=== PATIENT | male | born 1935 | race Caucasian/White ===

== ENCOUNTER 2018-03-24 16:14 | Inpatient (IN) | payer OTHER, BC ==
[~2018-03-24] VITALS: Ht 182.9 cm; Wt 81.4 kg
--- NOTE | ~2018-03-24 | HC ---
[facility] [place] [address] CONSULTATION Name: JOÃO HERNANDEZ Room #: 515-P [facility]..#: [id number] Admission: 03/27/18 Attend Phys: Jayant King MD Discharge: 04/10/18 Date of : 34 Report #: [id number] THIS REPORT FOR: //name// CC: Jayant Hernandez DATE OF SERVICE: 04/01/2018 NEUROBEHAVIORAL STATUS EXAM ATTENDING PHYSICIAN: Jayant King MD GUIDE DOG MOBILITY INSTRUCTOR: Jayant Luna, PhD CLINICAL PRESENTATION: The patient is an 83-year-old male admitted to [facility] for a comprehensive inpatient rehabilitation program to improve functional mobility and activities of daily living and self-care secondary to a fall at his home. The patient is described as having had a syncopal episode. He carries diagnoses of Parkinson's disease, sick sinus syndrome with atrial fibrillation and bradycardia, Gram-negative elisa bacteremia, acute renal insufficiency, mild rhabdomyolysis, chronic atrial fibrillation, chronic back pain, coronary artery disease, status post stents and coronary artery bypass grafting and urinary tract infection with prostatitis. A complete description of his medical condition and history can be found in his medical record. Neuropsychological consultation was requested to provide assistance in the assessment of cognitive and emotional status and to provide recommendations and services. Prior to this most recent admission, he reported to have been living independently in his own home. The patient reports having a supportive family. 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 He reports that he was driving and managing medication, nutrition and finances independently prior to this most recent medical event. His several years ago. TECHNIQUES UTILIZED: Clinical interview, review of medical records, staff consultation and behavioral observation, mini mental status exam 2 standard version, clock drawing. EXAMINATION FINDINGS: The patient was alert and cooperative with the assessment. He accurately described events surrounding his admission. There is no evidence of aphasia. He does not report auditory or visual hallucinations. There is no evidence of thought disorder. The patient reports symptoms to include sleep disturbance, decreased appetite, depression and anxiety. He reports having been on an antidepressant, but does not feel it to be helping. He denies difficulty with memory or word finding. The patient is self-conscious about cognitive deficits as his premorbid level of functioning was quite high. [address] [address] CONSULTATION Name: DAVIDJOÃO Eliana RODRIGUEZ Room #: 515-P [facility]#: [id number] Admission: 03/27/18 Attend Phys: Jayant King MD Discharge: 04/10/18 Date of : 34 Report #: [id number] His performance on the MMSE 2 brief version was extremely low with a raw score of 10/16 and a T score of 12. He was 3/3 for initial registration, 4/5 for orientation to time, 1/[address] and 2/3 for immediate recall of 3 items after a brief time delay and distraction. His performance improved, but still extremely low on the MMSE 2 standard version with a raw score of 22/30, T score of 28 and percentile rank of 1. Moderate deficits are suggested by overall performance on the MMSE 2. He was 4/5 for serial sevens, 2/2 for naming, 1/1 for repetition, 3/3 for comprehension. He could read and follow single command. The patient was able to write a sentence. The patient did have trouble copying a simple geometric design. Clock drawing suggests some subtle deficits in organization. The patient is presenting with impairment in immediate memory and orientation to place. Tiredness and fatigue may be contributing to his overall level of functioning. 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 RECOMMENDATIONS: The patient will likely require increased assistance in the management of instrumental activities of daily living upon his discharge. He reports that he was completely independent with driving and managing all aspects of necessary activity. Continued treatment for depression is recommended. Consider a change in the antidepressants by either increasing dose or switching to a different type. Verbal praise and complements will be helpful during his therapeutic program. The patient will need help in recognizing specific deficits in the way in which therapeutic activity is designed to assist with compensation. Thank you very much for allowing me to provide the consultation on this patient. <ELECTRONICALLY SIGNED> By: Jayant Luna, PhD 04/10/18 [id number] Jayant Luna, PhD /nt
--- NOTE | ~2018-03-24 | PLAN ---
[facility] [place] [address] REHAB UNIT PLAN OF CARE Name: JOÃO SALAS JR Room #: 515-P [facility] M.R.#: [id number] Admission: 03/27/18 Attend Phys: Jayant King MD Discharge: Date of : 34 Report #: [id number] THIS REPORT FOR: //name// CC: Jayant Salas DATE OF SERVICE: 03/29/2018 PROGRESS NOTE AND OVERALL PLAN OF CARE SUBJECTIVE: The patient was seen back in followup. He was in no distress this morning. Temperature is 98.5, pulse is 69, respirations 18, and blood pressure is 160/77. He has been transferring with min assist, gait 75 feet front-wheeled walker. He does have some balance deficits with his Parkinson's. We are monitoring him closely. Lower extremity dressing is moderate assistance. He does have definite dysphagia, on a pureed diet, nectar thickened liquids. Vital stimulation has been added. He is being closely monitored by Infectious Disease as well as Pulmonary Medicine. GI is involved as well as internal medicine. He will need a pacemaker eventually per notes. His ileus has resolved. He does have the history of UTI with prostatitis. ASSESSMENT: 1. Syncopal episode. 2. Parkinson's disease. 3. Sick sinus syndrome with atrial fibrillation with bradycardia. 4. Gram-negative elisa bacteremia with Infectious Disease involved. 5. Acute renal insufficiency. 6. Mild rhabdomyolysis. 7. Chronic atrial fibrillation, on Coumadin. 8. Chronic back pain. 9. Coronary artery disease, status post cardiac stents and coronary artery bypass grafting. 10. History of urinary tract infection with prostatitis. PLAN: The overall plan of care is based on the preadmission screen, post-admission physician evaluation, and information garnered from therapy assessments. 1. Estimated length of stay is probably 10 days to 2 weeks and probably longer with his multiple medical issues and dysphagia. He has the significant functional deficits. 2. Medical prognosis is reasonably good. 3. Anticipated interventions includes the interdisciplinary acute inpatient rehabilitation program with PT, OT, speech rehab nursing assisting regarding medication management, skin care prophylaxis, bowel and bladder issues, and nursing education. Case management is involved as well as the computer consultant physicians. [address] [address] REHAB UNIT PLAN OF CARE Name: JOÃO SALAS Room #: 515-P [facility] IN [facility].#: [id number] Admission: 03/27/18 Attend Phys: Jayant King MD Discharge: Date of : 34 Report #: [id number] 4. Anticipated functional outcomes would be for the patient to become modified independent with transfers, mobility, ADLs, and swallowing issues to try to return back to the home setting. 5. Discharge destination would be back to the home setting where he lives in a house alone. He does have involved family. 6. Expected therapy by discipline includes PT and OT and speech 1 hour per day each five days a week throughout the duration of the acute inpatient rehabilitation stay. <ELECTRONICALLY SIGNED> By: Jayant King MD 04/05/18 [id number] Jayant King MD /[facility]
--- NOTE | ~2018-03-24 | H ---
[facility] [place] [address] HISTORY AND PHYSICAL Name: JOÃO SALAS JR Room #: 515-P [facility] IN M.R.#: [id number] Admission: 03/27/18 Attend Phys: Jayant King MD Discharge: Date of : 34 Report #: [id number] THIS REPORT FOR: //name// CC: Jayant Salas DATE OF SERVICE: 03/27/2018 HISTORY AND PHYSICAL AND POST-ADMISSION PHYSICIAN EVALUATION HISTORY OF PRESENT ILLNESS: The patient is an 83-year-old white male originally transferred to [facility] on 03/20/2018 from [facility] after he passed out in the shower. He has history of Parkinson's disease and has been on Sinemet. He did not utilize gait aids in his home. He used a cane in the community. He was noted by family noted to have passed out in the shower. He was diagnosed with rhabdomyolysis. He also was diagnosed with sick sinus syndrome and noted to have had a syncopal episode. He has acute renal insufficiency. He was diagnosed with bacteremia, gram-negative elisa, question of acute pyelonephritis. Cardiology was closely involved. He had bradycardia in the 40s. The plan at this time is to hold off on pacemaker placement. He was premorbidly on anticoagulation. He has been cleared to resume p.o. Coumadin. He did have some abdominal pain/ileus with Reglan being added. Swallow eval did reveal some dysphagia and he is on pureed with nectar thickened liquid. He was diagnosed with UTI prostatitis, was placed on Levaquin. He had acute renal insufficiency. With his Parkinson's disease, he has problems with decreased coordination, balance and his overall functional condition has worsened. He has now been admitted for acute in-hospital inpatient rehabilitation. PAST MEDICAL HISTORY: Parkinson's disease. He has history of hypertension, anxiety, depression, dyslipidemia, skin cancer, coronary artery disease, chronic back pain. PAST SURGICAL HISTORY: Appendectomy, CABG x 3 in 1999, right hip replacement in 2012, Dupuytren's contractures in 1974 and in 2005. ALLERGIES: EZETIMIBE, SIMVASTATIN, AMANTADINE AND CYCLOBENZAPRINE. MEDICATIONS: Please see the full medication listing. This includes his vitamins, herbals, and supplements. HABITS: Tobacco abuse, quit greater than a year ago. No history of alcohol abuse. SOCIAL HISTORY: Lives in a house alone, two steps in, did not utilize gait aids. Used a cane in the community. There is a son that lives in the area and has been calling daily and will go by and check in on him. [place] [address] HISTORY AND PHYSICAL Name: JOÃO SALAS Room #: 515-P [facility] ..#: [id number] Admission: 03/27/18 Attend Phys: Jayant King MD Discharge: Date of : 34 Report #: [id number] well. REVIEW OF SYSTEMS: No current complaints of chest pain, shortness of breath or abdominal discomfort. No focal extremity pain complaints. PHYSICAL EXAMINATION: GENERAL: An 83-year-old white male in no obvious distress. VITAL SIGNS: Last recorded temperature 98.1, pulse 73, respirations 24, blood pressure 149/67. HEAD, EYES, EARS, NOSE, AND THROAT: He does have some evidence of masked facies. CHEST: Some decreased breath sounds diffusely. He is currently eating his thickened liquid diet. CARDIOVASCULAR: Sounded regular rate, pulse this morning is 80. ABDOMEN: Bowel sounds positive. GENITOURINARY AND RECTAL: Deferred. EXTREMITIES: Functional range of motion of the upper extremities with some cogwheeling elbows and wrists. He has some mild rigidity. Minimal resting tremor. Strength is grade 4- to 3+/5. DTRs are trace to 1. In his lower extremities, no focal calf swelling, some rigidity. Strength is grade 4-. DTRs are trace to 1. Transfers are min assist. Gait min assist 175 feet with a front-wheeled walker. ASSESSMENT: An 83-year-old white male with the following problem list: 1. Syncopal episode. 2. Parkinson's disease. 3. Sick sinus syndrome with atrial fibrillation with bradycardia. 4. Gram-negative elisa bacteremia with Infectious Disease. 5. Acute renal insufficiency. 6. Mild rhabdomyolysis. 7. Chronic atrial fibrillation, on Coumadin. 8. Chronic back pain. 9. Coronary artery disease, status post cardiac stents and coronary artery bypass grafting. 10. Urinary tract infection with prostatitis. PLAN: The patient is admitted for acute in-hospital inpatient rehabilitation. From a postadmission physician evaluation perspective, there are no relevant changes since the preadmission screening. Please see the above review of prior and current medical and functional conditions and comorbidities. Please see the patient's previous and current functional status. As far as risk of complications, the patient has multiple medical comorbidities as noted above. Initial plan of care involves the interdisciplinary acute inpatient rehabilitation program with goal of maximizing the patient's functional independence, so he can hopefully return back to his prior living situation. Measurable functional goals would be for him to improve as far as strength and [address] [address] HISTORY AND PHYSICAL Name: JOÃO SALAS Room #: 515-P [facility] IN [facility]#: [id number] Admission: 03/27/18 Attend Phys: Jayant King MD Discharge: Date of : 34 Report #: [id number] endurance, mobility, ADLs and swallowing, so he can return back to the home setting. Goal would be for him to be ideally at least with a walker if not a cane. Prognosis is reasonably good with estimated length of stay probably 10 days to 2 weeks and potentially longer if warranted. Potential barriers would include his multiple medical comorbidities and decreased functional status. The patient meets diagnostic criteria for an acute in-hospital inpatient rehabilitation stay. He meets the medical necessity criteria. He does have the tolerance for therapies and has appropriate discharge goals back to the home setting. <ELECTRONICALLY SIGNED> By: Jayant King MD 04/05/18 1735 [id number] Jayant King MD /[facility]
[~2018-03-24 16:14] MED LIST: ALPRAZOLAM 0.50.5 M1 PO; ARICEPT 5 MG TAB5 MG PO; ASPIRIN BUFFER325 MG PO; ASPIRIN EC325 M1 PO; ATENOLOL PO; BACTROBAN22 GM; BACTROBAN22 GM NASAL; BUDEPRION SR100 MG PO; CARBIDOPA-LEVO1 EAC7 PO; CARBIDOPA-LEVO1 EAC9 PO; COUMADIN 2 MG TA2 M1 PO; COUMADIN 3 MG TA3 M1 PO; COUMADIN 4 MG TA4 M1 PO; FISH OIL + D31 EACH PO; FISH OIL 1,0001 EAC5 PO; HYDROCHLOROTH12.5 M1 PO; HYDROCODON-ACE1 EAC7 PO; KEFLEX500 MG PO; LEVOXYL125 MCG PO; LOVASTAT20; MECLIZINE HCL25 M1 PO; MELATONIN5 M1 PO; MEVACOR40 MG PO; MS CONTIN15 MG PO; MULTIPLE VITAM1 EAC1 PO; MULTIPLE VITAM1 EAC3 PO; NORVASC 5 MG TAB5 MG PO; TEARS NATURALE1 EACH OPHTHALMIC; THERA-M CAPLET1 EACH PO; TRAZODONE HCL50 MG PO; TRICOR PO; TRICOR145 MG PO; TYLENOL325 MG PO; WELLBUTRIN XL150 MG PO
[2018-03-27] MEDS ORDERED: LEVAQUIN 500 M500 M2 PO (08:54)
[2018-03-27] MEDS ORDERED: ENOXAPARIN80 MG/0.1 SUBQ (08:54)
[2018-03-27] MEDS ORDERED: DUONEB 2.5-0.5 M3 ML INH (08:54)
[2018-03-27] MEDS ORDERED: TRAMADOL 50 MG50 MG PO (08:54)
[2018-03-27] MEDS ORDERED: ACETAMINOPHEN325 M1 PO (08:54)
[2018-03-27] MEDS ORDERED: MIRALAX17 GM PO (08:55)
[2018-03-27] MEDS ORDERED: REGLAN 10 MG TA10 MG PO (08:55)
[2018-03-27] MEDS ORDERED: PEPCID20 MG PO (08:56)
[2018-03-27] MEDS ORDERED: HOME MEDICATION PO (08:57)
[2018-03-27 12:15] VITALS: BP 139/79
[2018-03-27 20:16] VITALS: BP 149/67
[2018-03-28 05:44] LABS: HEMATOCRIT 34.6 % (42.0-52.0); MCH 33.4 pg (26.0-34.0); MCHC 34.7 g/dL (28.0-37.0); MCV 96.3 fL (80.0-100.0); RBC 3.59 mil/uL (4.50-6.00); RDW 13.1 % (10.5-14.5); WBC 8.9 thou/uL (4.0-11.0)
[2018-03-28 05:53] LABS: INR 1.8; PROTIME 17.8 Seconds (9.3-11.4)
[2018-03-28 05:54] LABS: CALCIUM 8.3 mg/dL (8.5-10.1); CREATININE 1.2 mg/dL (0.7-1.3); POTASSIUM 3.5 mmol/L (3.5-5.1)
[2018-03-28 08:00] VITALS: BP 151/87
[2018-03-28 19:59] VITALS: BP 152/71
[2018-03-29 04:02] VITALS: BP 160/77
[2018-03-29 04:50] LABS: PROTIME 20.7 Seconds (9.3-11.4)
[2018-03-29 09:00] VITALS: BP 143/63
[2018-03-29 19:53] VITALS: BP 150/66
[2018-03-30 06:03] LABS: INR 2.1; PROTIME 21.4 Seconds (9.3-11.4)
[2018-03-30 09:00] VITALS: BP 152/75
[2018-03-30 20:22] VITALS: BP 155/71
[2018-03-31 02:38] LABS: INR 2.3; PROTIME 22.8 Seconds (9.3-11.4)
[2018-03-31 08:00] VITALS: BP 153/62
[2018-03-31 20:14] VITALS: BP 148/62
[2018-04-01 08:14] VITALS: BP 143/68
[2018-04-01 19:53] VITALS: BP 150/57
[2018-04-02 07:55] VITALS: BP 147/57
[2018-04-02 20:24] VITALS: BP 153/52
[2018-04-03 08:00] VITALS: BP 168/76
[2018-04-03 08:53] LABS: HEMATOCRIT 37.9 % (42.0-52.0); HEMOGLOBIN 12.7 gm/dL (14.0-18.0); MCH 33.2 pg (26.0-34.0); MCHC 33.5 g/dL (28.0-37.0); MCV 99.2 fL (80.0-100.0); PLATELET COUNT 223 thou/uL (150-400); RBC 3.82 mil/uL (4.50-6.00); RDW 13.2 % (10.5-14.5); WBC 9.5 thou/uL (4.0-11.0)
[2018-04-03 09:12] LABS: CALCIUM 8.6 mg/dL (8.5-10.1); CREATININE 1.1 mg/dL (0.7-1.3); POTASSIUM 3.3 mmol/L (3.5-5.1)
[2018-04-03 09:19] LABS: ABSOLUTE NEUTROPHILS 6.8 thou/uL (1.4-8.2)
[2018-04-03 09:20] LABS: PLATELET ESTIMATE NORMAL
[2018-04-03 19:46] VITALS: BP 147/61
[2018-04-04 05:37] LABS: INR 1.9; PROTIME 18.9 Seconds (9.3-11.4)
[2018-04-04 08:25] VITALS: BP 171/69
[2018-04-04 19:38] VITALS: BP 178/72
[2018-04-05 08:00] VITALS: BP 151/75
[2018-04-05 20:19] VITALS: BP 166/57
[2018-04-06 04:05] LABS: HEMATOCRIT 36.3 % (42.0-52.0); HEMOGLOBIN 12.4 gm/dL (14.0-18.0); MCH 33.4 pg (26.0-34.0); MCHC 34.2 g/dL (28.0-37.0); MCV 97.6 fL (80.0-100.0); PLATELET COUNT 219 thou/uL (150-400); RBC 3.72 mil/uL (4.50-6.00); RDW 13.4 % (10.5-14.5); WBC 9.1 thou/uL (4.0-11.0)
[2018-04-06 04:16] LABS: CALCIUM 8.7 mg/dL (8.5-10.1); CREATININE 1.2 mg/dL (0.7-1.3); MAGNESIUM 2.1 mg/dL (1.8-2.4); POTASSIUM 3.7 mmol/L (3.5-5.1)
[2018-04-06 05:42] LABS: ABSOLUTE NEUTROPHILS 6.5 thou/uL (1.4-8.2); ATYPICAL LYMPHS 2 %
[2018-04-06 07:45] VITALS: BP 136/70
[2018-04-06 20:22] VITALS: BP 159/65
[2018-04-07 06:26] LABS: INR 1.9
[2018-04-07 07:55] VITALS: BP 161/69
[2018-04-07 20:00] VITALS: BP 135/59
[2018-04-08 07:50] VITALS: BP 173/66
[2018-04-08 19:25] VITALS: BP 136/59
[2018-04-09 07:50] VITALS: BP 139/61
[2018-04-09 20:27] VITALS: BP 131/64
[2018-04-10 05:43] LABS: INR 2.6; PROTIME 26.5 Seconds (9.3-11.4)
[2018-04-10] MEDS ORDERED: IPRAT-ALBUT 0.5-3 ML INH (08:56)
[2018-04-10 09:15] VITALS: BP 147/48
[2018-04-10] MEDS ORDERED: [UNRECOGNIZED DRUG - REMARK] (12:06)
== END 2018-04-10 12:51 | DRG 312 ==
PROVIDERS: Nurse Practitioner; Nurse Practitioner Family
PROC: 5A09357 Assistance with Respiratory Ventilation, Less than 24 Consecutive Hours, Continuous Positive Airway Pressure (ICD-10-PCS; principal; 2018-03-28)
PROC: 5A09357 Assistance with Respiratory Ventilation, Less than 24 Consecutive Hours, Continuous Positive Airway Pressure (ICD-10-PCS; 2018-03-31)
DX: R55 Syncope and collapse (principal); J69.0 Pneumonitis due to inhalation of food and vomit; J96.00 Acute respiratory failure, unspecified whether with hypoxia or hypercapnia; A41.51 Sepsis due to Escherichia coli [E. coli]; M62.82 Rhabdomyolysis; R78.81 Bacteremia; N39.0 Urinary tract infection, site not specified; K56.7 Ileus, unspecified; G20 Parkinson's disease; I49.5 Sick sinus syndrome; I48.2 Chronic atrial fibrillation; W18.2XXA Fall in (into) shower or empty bathtub, initial encounter; B96.20 Unspecified Escherichia coli [E. coli] as the cause of diseases classified elsewhere; R13.10 Dysphagia, unspecified; Z60.2 Problems related to living alone; G89.29 Other chronic pain; M54.9 Dorsalgia, unspecified; I25.10 Atherosclerotic heart disease of native coronary artery without angina pectoris; I10 Essential (primary) hypertension; E78.5 Hyperlipidemia, unspecified; Z96.641 Presence of right artificial hip joint; N41.9 Inflammatory disease of prostate, unspecified; R19.7 Diarrhea, unspecified; K59.00 Constipation, unspecified; E86.9 Volume depletion, unspecified; R53.81 Other malaise; R41.9 Unspecified symptoms and signs involving cognitive functions and awareness; F41.8 Other specified anxiety disorders; G47.00 Insomnia, unspecified; R97.20 Elevated prostate specific antigen [PSA]; Y92.002 Bathroom of unspecified non-institutional (private) residence as the place of occurrence of the external cause; Y93.E1 Activity, personal bathing and showering; Y99.8 Other external cause status; Z91.81 History of falling; Z95.5 Presence of coronary angioplasty implant and graft; Z95.1 Presence of aortocoronary bypass graft; Z87.440 Personal history of urinary (tract) infections; Z85.828 Personal history of other malignant neoplasm of skin; Z90.49 Acquired absence of other specified parts of digestive tract; Z79.01 Long term (current) use of anticoagulants; Z88.8 Allergy status to other drugs, medicaments and biological substances; Z87.891 Personal history of nicotine dependence
CPT/HCPCS: 10112

== ENCOUNTER 2018-05-16 06:41 | Observation (INO) | payer OTHER, BC ==
[~2018-05-16] VITALS: Ht 182.9 cm; Wt 81.2 kg
--- NOTE | ~2018-05-16 | P ---
[facility] [place] [address] PROCEDURE REPORT Name: JOÃO HERNANDEZ JR Room #: 200-I [facility]#: [id number] Admission: 05/16/18 Attend Phys: Arsalan Lazaro MD Discharge: Date of : 34 Report #: [id number] THIS REPORT FOR: //name// CC: Jason Earl PREOPERATIVE DIAGNOSES: 1. Atrial fibrillation. 2. 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 HISTORY: The patient is an 83-year-old with a history of Alzheimer disease and permanent atrial fibrillation, recently hospitalized after a syncopal episode and evidence of urosepsis with positive blood cultures who was noted to be bradycardic at that time. He has recently recovered from his infection and remains bradycardic on no AV sridhar blocking agents with heart rates in the 30s to 40s. He is here for a pacemaker implantation. ANESTHESIA: The patient underwent MAC anesthesia with no anesthesia related complications. DESCRIPTION OF PROCEDURE: The patient underwent informed consent. We discussed the details of the procedure including the risks, which include but not limited to bleeding, infection, vascular damage, cardiac perforation and pneumothorax. He and his family understood these risks and were willing to proceed. The patient was brought to the EP laboratory in a fasting and unsedated state and prepped and draped in the sterile fashion. The patient underwent venography showing patency of the left axillary vein and received IV Ancef for antibiotic prophylaxis. Next, I injected lidocaine at the incision site. Incision was made. A pocket was created over the prepectoral fascia and access was obtained once to the left axillary vein using the extrathoracic approach with the sheath positioned using the modified Seldinger technique. Next, a lead was positioned into the right ventricular mid septum with adequate pacing and sensing thresholds. The lead was sutured to the prepectoral fascia and the device was connected. The pocket was irrigated with vancomycin. The pocket was closed in three layers using 2-0 for the deep layer, 3-0 for the mid layer and 4-0 for the subcuticular. Surgical glue was placed through the outer skin layer. The patient awoke neurologically and hemodynamically intact, no complications and no significant bleeding. The implanted pacemaker was a [employer]otronik model #[id number], serial #[id number]. This is an MRI compatible device given his history of Alzheimer disease and need for future MRIs. His implanted lead was a Bi[employer] model #[id number], serial #[id number] with an R-wave of 11.5 millivolts, pacing impedance of 546 ohms and a pacing threshold of 0.8 volts at 0.4 milliseconds. The device was programmed to the DDD/CLS 70-[address] [address] PROCEDURE REPORT Name: JOÃO HERNANDEZ JR Room #: 200-I [facility] M.R.#: [id number] Admission: 05/16/18 Attend Phys: Arsalan Lazaro MD Discharge: Date of : 34 Report #: [id number] CONCLUSIONS: DICTATION ENDS HERE By: [id number] Arsalan Lazaro MD /kalra
[~2018-05-16 06:41] MED LIST changes: +ACETAMINOPHEN325 M1 PO; +DUONEB 2.5-0.5 M3 ML INH; +ENOXAPARIN80 MG/0.1 SUBQ; +HOME MEDICATION PO; +IPRAT-ALBUT 0.5-3 ML INH; +LEVAQUIN 500 M500 M2 PO; +MIRALAX17 GM PO; +PEPCID20 MG PO; +REGLAN 10 MG TA10 MG PO; +TRAMADOL 50 MG50 MG PO; +[UNRECOGNIZED DRUG - REMARK]
[2018-05-16 07:14] VITALS: BP 139/52
[2018-05-16] MEDS ORDERED: SINEMET 25-1001 EAC1 PO (07:17)
[2018-05-16] MEDS ORDERED: CARBIDOPA-LEVO1 EAC7 PO (07:19)
[2018-05-16] MEDS ORDERED: PRINIVIL10 MG PO (07:20)
[2018-05-16] MEDS ORDERED: NAMENDA 10 MG T10 MG PO (07:21)
[2018-05-16] MEDS ORDERED: ASPERCREME76.5 GM TOP (07:25)
[2018-05-16 07:33] LABS: HEMATOCRIT 34.3 % (42.0-52.0); HEMOGLOBIN 11.5 gm/dL (14.0-18.0); MCH 32.7 pg (26.0-34.0); MCHC 33.5 g/dL (28.0-37.0); MCV 97.7 fL (80.0-100.0); PLATELET COUNT 155 thou/uL (150-400); RBC 3.51 mil/uL (4.50-6.00); RDW 14.3 % (10.5-14.5); WBC 7.3 thou/uL (4.0-11.0)
[2018-05-16 07:42] LABS: CALCIUM 9.2 mg/dL (8.5-10.1); CREATININE 1.2 mg/dL (0.7-1.3); POTASSIUM 4.2 mmol/L (3.5-5.1)
[2018-05-16 07:49] LABS: APTT 28.5 Seconds (24.5-32.8); INR 1.1; PROTIME 11.3 Seconds (9.3-11.4)
[2018-05-16 08:44] LABS: ABSOLUTE NEUTROPHILS 4.2 thou/uL (1.4-8.2); PLATELET ESTIMATE NORMAL
[2018-05-16 11:55] VITALS: BP 163/82
[2018-05-16 15:20] VITALS: BP 142/70
[2018-05-16 19:56] VITALS: BP 149/74
[2018-05-16 23:30] VITALS: BP 146/69
[2018-05-17 04:45] VITALS: BP 155/77
[2018-05-17 07:16] VITALS: BP 160/82
[2018-05-17 11:07] VITALS: BP 154/76
[2018-05-17 15:25] VITALS: BP 154/76
[2018-05-17 16:18] VITALS: BP 154/76
== END 2018-05-17 15:48 | disposition home or self-care (01) ==
LOC: CATH 06:41 → 2N 11:57 → CATH 12:43 → 2N 05-17 15:48
PROVIDERS: Internal Medicine Cardiovascular Disease
DX: I48.2 Chronic atrial fibrillation (principal); R00.1 Bradycardia, unspecified; I44.0 Atrioventricular block, first degree; G30.9 Alzheimer's disease, unspecified; F02.80 Dementia in other diseases classified elsewhere, unspecified severity, without behavioral disturbance, psychotic disturbance, mood disturbance, and anxiety; Z95.1 Presence of aortocoronary bypass graft
CPT/HCPCS: 62110; 62900; 70005